=== PATIENT | male | born 1940 | race Caucasian/White ===

== ENCOUNTER 2020-05-06 09:09 | Emergency (ER) | payer MEDICARE, OTHER, SELFPAY ==
[2020-05-06 09:20] VITALS: BP 157/75; PULSE 79; RESP 18; TEMP 36.8; O2SAT 97
--- NOTE | 2020-05-06 09:42 | ED.FALL ---
HPI - Fall General Chief Complaint: Fall Stated Complaint: Fell last night cut over rt eye Time Seen by Provider: 05/06/20 09:41 Source: patient Mode of arrival: Ambulatory Limitations: no limitations History of Present Illness HPI Narrative: Patient is an 79-year-old male who presents with facial laceration. He says he tripped and fell on his boat last evening he cut over his right eye there was no loss of consciousness. He was able to put a Band-Aid on it and go back to sleep. He fell on a dresser. He denies any nausea vomiting or headache. He denies any numbness tingling or weakness. He does say that he has on a blood thinner which he is not sure the name of his he had a stroke about 3 months ago. complaint: fall Onset (ago): hour(s) Fall from: standing Fall witnessed: yes, by family Place fall occurred: other (boat) Related Data Allergies Allergy/AdvReac Type Severity Reaction Status Date / Time No Known Drug Allergies Allergy Verified 05/06/20 09:26 Review of Systems Review of Systems ROS Unobtainable: All systems reviewed & are unremarkable except as noted in HPI and below Constitutional Constitutional: Denies chills, Denies fever(s), Denies lethargy and Denies weakness Eyes Eyes: Reports as per HPI, Denies blind spots, Denies blurry vision, Denies diplopia and Denies loss of vision ENT Ears, Nose, Mouth, and Throat: Denies vertigo and Denies dizziness Cardiovascular Cardiovascular: Denies chest pain, Denies irregular heart rhythm, Denies lightheadedness, Denies palpitations, Denies dyspnea, Denies dyspnea on exertion and Denies orthopnea Respiratory Respiratory: Denies cough, Denies dyspnea, Denies dyspnea on exertion and Denies wheezing Gastrointestinal Gastrointestinal: Denies abdominal pain, Denies change in bowel habits, Denies diarrhea, Denies nausea and Denies vomiting Integumentary/Breasts Skin/Breast: Denies pruritus, Denies erythema, Denies rash and Denies wounds Neurologic Neurologic: Denies confusion, Denies vertigo, Denies dizziness, Denies loss of vision and Denies weakness Psychiatric Psychiatric: Denies confusion Endocrine Endocrine: Denies palpitations Allergic/Immunologic Allergic/Immunologic: Denies wheezing Patient History Medical History CVA (cerebral vascular accident) (Acute) Social History Smoking Status: Never smoker Smoking Status: Never smoker Substance Use Type: does not use Exam Initial Vital Signs Initial Vital Signs: Vital Signs Temperature 98.2 F 05/06/20 09:20 Pulse Rate 79 05/06/20 09:20 Respiratory Rate 18 05/06/20 09:20 Blood Pressure 157/75 H 05/06/20 09:20 Pulse Oximetry 97 05/06/20 09:20 GENERAL: Well-appearing, well-nourished and in no acute distress. HEENT: Head atraumatic,EOMI, pupils reactive, face symmetric, moist mucous membranes NECK: No vertebral tenderness no step-offs a full flexion extension and rotation without pain CARDIOVASCULAR: Regular rate and rhythm without murmurs, rubs or gallops. RESPIRATORY: Breath sounds equal bilaterally, no wheezes rales or rhonchi. ABDOMEN: Soft, nontender. Normoactive bowel sounds all 4 quadrants. No guarding or rebound. EXTREMITIES: Normal range of motion, no clubbing or edema. Neurovascularly intact NEUROLOGICAL: Alert and oriented x4.Normal gait and speech. Cranial nerves II through XII grossly intact. [employer] strength equal bilaterally SKIN: Closed laceration over right eye 3cm Scores Nexus Score for C-Spine Focal Neurologic deficit present: No Midline spinal tenderness present: No Altered level of conciousness present: No Intoxication present: No Distracting Injury Present: No Nexus Criteria for C-spine: 0 Course Orders Ordered: ED Orders 05/06/20 09:47 CT head/brain wo con Stat Vital Signs Vital signs: Vital Signs - 8 hr 05/06/20 09:20 05/06/20 11:00 Temperature 98.2 F Pulse Rate 79 64 Respiratory Rate 18 Blood Pressure 157/75 H 148/65 H Pulse Oximetry 97 97 MDM - Fall Imaging Data CT scan - head: Radiologist's Impression: PROCEDURE: CT HEAD/BRAIN WO CON INDICATIONS: fall last night on thinner lac right eye TECHNIQUE: Noncontrast 4.5 mm thick angled axial sections acquired from the foramen magnum to the vertex, with coronal and sagittal reformats. For radiation dose reduction, the following was used: automated exposure control, adjustment of mA and/or kV according to patient size. COMPARISON: None. FINDINGS: Image quality: Diagnostic. CSF spaces: Basal cisterns are patent. No extra-axial fluid collections. Ventricles are mildly prominent with corresponding parenchymal volume loss. The degree of ventricular prominence is more pronounced than the degree of parenchymal volume loss. Brain: No midline shift. No intracranial masses or hemorrhage. Weaver-white matter interface is normal. Subtle areas of low-attenuation within the periventricular white matter of the supratentorial brain is present. Skull and face: Calvarium and visualized facial bones are intact, without suspicious lesions. Sinuses: Moderate mucosal thickening of the right maxillary sinus is present demonstrating slight increased density. There is also opacification of the right frontal sinuses and ethmoid air cells. Mild mucosal thickening of the left maxillary sinus is present. The sphenoid air cells appear to be clear. There also appear to be postoperative changes of the maxillary sinuses. IMPRESSION: 1. No acute intracranial hemorrhage. 2. 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 3. Mild chronic small vessel ischemic changes. 4. Prominence of the ventricles may be related to parenchymal volume loss. However, clinical correlation to exclude normal pressure hydrocephalus is recommended. Dictated by: Cresencio Espitia M.D. on 05/06/2020 at 9:25 Approved by: Cresencio Espitia M.D. on 05/06/2020 at 9:27 MDM Narrative Medical decision making narrative: Patient does take aspirin 324 and atorvastatin, however this information was found after his head CT. He is really no focal deficits neck is cleared with nexus criteria. He does have a 3 cm laceration over his right eye which has already closed and started to scab over at this time no repair is needed. Head CT is also negative. Patient is up-to-date on his tetanus Discharge Plan Departure Patient Disposition: Home Clinical Impression: Laceration of face Qualifiers: Encounter type: initial encounter Qualified Code(s): S01.81XA - Laceration without foreign body of other part of head, initial encounter Discharge Date/Time: 05/06/20 11:04 Instructions: Skin Wound Activity Restrictions/Additional Instructions: *You have been diagnosed with facial laceration *What to do: Keep area clean and dry with soap and water may apply Neosporin *Continue to take medications as directed *Follow up with your primary care provider in 2-3 days *Return to ER if you should have worsening headache, persistent vomiting, redness pus or swelling at laceration or any new, worsening or concerning symptoms
--- NOTE | 2020-05-06 09:47 | DI.CT.S_ITS ---
PROCEDURE: CT HEAD/BRAIN WO CON INDICATIONS: fall last night on thinner lac right eye TECHNIQUE: Noncontrast 4.5 mm thick angled axial sections acquired from the foramen magnum to the vertex, with coronal and sagittal reformats. For radiation dose reduction, the following was used: automated exposure control, adjustment of mA and/or kV according to patient size. COMPARISON: None. FINDINGS: Image quality: Diagnostic. CSF spaces: Basal cisterns are patent. No extra-axial fluid collections. Ventricles are mildly prominent with corresponding parenchymal volume loss. The degree of ventricular prominence is more pronounced than the degree of parenchymal volume loss. Brain: No midline shift. No intracranial masses or hemorrhage. Weaver-white matter interface is normal. Subtle areas of low-attenuation within the periventricular white matter of the supratentorial brain is present. Skull and face: Calvarium and visualized facial bones are intact, without suspicious lesions. Sinuses: Moderate mucosal thickening of the right maxillary sinus is present demonstrating slight increased density. There is also opacification of the right frontal sinuses and ethmoid air cells. Mild mucosal thickening of the left maxillary sinus is present. The sphenoid air cells appear to be clear. There also appear to be postoperative changes of the maxillary sinuses. IMPRESSION: 1. No acute intracranial hemorrhage. 2. 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 3. Mild chronic small vessel ischemic changes. 4. Prominence of the ventricles may be related to parenchymal volume loss. However, clinical correlation to exclude normal pressure hydrocephalus is recommended. Dictated by: Cresencio Espitia M.D. on 05/06/2020 at 9:25 Approved by: Cresencio Espitia M.D. on 05/06/2020 at 9:27
[2020-05-06 11:00] VITALS: BP 148/65; PULSE 64; O2SAT 97
== END 2020-05-06 11:04 | disposition home or self-care (01) ==
PROVIDERS: Emergency Provider Emergency Medicine
DX: S01.81XA Laceration without foreign body of other part of head, initial encounter (principal); W18.09XA Striking against other object with subsequent fall, initial encounter
CPT/HCPCS: 70450; 99283; 99284